=== PATIENT | female | born 1990 | race African-American/Black ===

== ENCOUNTER 2022-10-28 17:24 | Emergency (ER) | payer OTHER ==
[~2022-10-28] VITALS: Ht 167.6 cm; Wt 135.4 kg
[2022-10-28 17:37] VITALS: BP 140/78; PULSE 90; RESP 16; TEMP 98.3
[2022-10-28] MEDS ORDERED: ACET-2080 PO (17:50)
[2022-10-28] MEDS ORDERED: IBUP-1554 PO (17:50)
== END 2022-10-28 18:44 | disposition home or self-care (01) ==
LOC: EMS 17:25
DX: S93.402A Sprain of unspecified ligament of left ankle, initial encounter (principal); X58.XXXA Exposure to other specified factors, initial encounter; Y93.89 Activity, other specified; Y92.89 Other specified places as the place of occurrence of the external cause; Y99.8 Other external cause status
CPT/HCPCS: 99283

== ENCOUNTER 2024-08-27 10:48 | Emergency (ER) | payer OTHER ==
[~2024-08-27] VITALS: Ht 167.6 cm; Wt 135.0 kg
[~2024-08-27 10:48] MED LIST: ACET-2080 PO; IBUP-1554 PO
[2024-08-27 10:53] VITALS: TEMP 97.7
[2024-08-27 11:55] VITALS: BP 128/55; PULSE 105; RESP 20; O2SAT 98
[2024-08-27] MEDS ORDERED: CHOL500043 PO (12:25)
[2024-08-27] MEDS ORDERED: CEPH500C3 PO (12:25)
[2024-08-27] MEDS ORDERED: FERR325T23 PO (12:25)
[2024-08-27] MEDS ORDERED: IBUP-2070 PO (12:25)
[2024-08-27] MEDS: TraMADol HCL 50 MG TABLET PO ONE (12:48)
[2024-08-27] MEDS: LIDOCAINE 1% 10 ML VIAL SQ ONE (12:49)
[2024-08-27] MEDS ORDERED: CLIN-142 PO (13:31)
== END 2024-08-27 13:55 | disposition home or self-care (01) ==
LOC: EMS 10:49
DX: L03.116 Cellulitis of left lower limb (principal); L02.416 Cutaneous abscess of left lower limb; Z79.899 Other long term (current) drug therapy
CPT/HCPCS: 99283; 10060; J3490

== ENCOUNTER 2024-11-22 20:31 | Emergency (ER) | payer OTHER ==
[~2024-11-22] VITALS: Ht 167.6 cm; Wt 118.6 kg
[~2024-11-22 20:31] MED LIST changes: -ACET-2080 PO; +CEPH500C3 PO; +CHOL500043 PO; +CLIN-142 PO; +FERR325T23 PO; -IBUP-1554 PO; +IBUP600 PO
[2024-11-22 21:02] VITALS: BP 147/93; PULSE 94; RESP 16; TEMP 99; O2SAT 98
[2024-11-22 21:25] LABS: APPEARANCE,URINE HAZY (CLEAR); GLUCOSE, URINE (UA) NEGATIVE (NEGATIVE); LEUKOCYTE ESTERASE ,URINE LARGE (NEGATIVE); NITRATE,URINE NEGATIVE (NEGATIVE); OCCULT BLOOD,URINE SMALL (NEGATIVE); SPECIFIC GRAVITIY, URINE 1.030 (1.003-1.030)
[2024-11-22 21:38] LABS: SULFOSALICYLIC ACID,URINE 3+ (Negative)
[2024-11-22 21:39] LABS: SQUAMOUS EPITHELIAL CELL,UR Many /LPF (None Seen)
== END 2024-11-22 22:48 | disposition left against medical advice (07) ==
LOC: EMS 20:31
DX: M54.9 Dorsalgia, unspecified (principal); Z53.21 Procedure and treatment not carried out due to patient leaving prior to being seen by health care provider
CPT/HCPCS: 81001; 81002; 87086